=== PATIENT | female | born 1985 | race American Indian/Alaskan Native ===

== ENCOUNTER 2017-07-02 21:07 | Emergency (ER) | payer SELFPAY ==
[2017-07-02] MEDS ORDERED: CATAPRES PO ONE (22:16)
--- NOTE | 2017-07-02 22:20 | Emergency Department Report ---
ED ENT HPI - General Chief complaint: Nosebleed Stated complaint: NOSE BLEED Time Seen by Provider: 07/02/17 22:16 Source: patient Mode of arrival: Ambulatory Limitations: No Limitations, Language Barrier - History of Present Illness Initial comments: Patient reports nose bleed that started fifteen minutes prior to ED arrival. The triage nurse applied pressure with a dressing and the bleeding has subsided. The patient's blood pressure was elevated. She has been noncompliant with antihypertensive medication for two years. She is requesting a prescription to help control blood pressure MD complaint: epistaxis Onset/Timin -: hour(s) Time: 20:45 Location: nose Severity scale (0 -10): 0 Quality: constant Consistency: constant Improves with: pressure Worsens with: none Context-Epistaxis: other (none) Context- Dental: other (none) Context- Ear: other (none) Associated Symptoms: denies: fever, cough, gum swelling, toothache, pain with swallowing, sore throat, tinnitus, hearing loss, discharge from ear, rhinorrhea - Related Data Previous Rx's Medication Instructions Recorded Last Taken Type amLODIPine [Norvasc] 10 mg PO DAILY #30 tab 07/02/17 Unknown Rx ED Dental HPI - General Chief complaint: Nosebleed Stated complaint: NOSE BLEED Source: patient Mode of arrival: Ambulatory Limitations: No Limitations, Language Barrier - Related Data Previous Rx's Medication Instructions Recorded Last Taken Type amLODIPine [Norvasc] 10 mg PO DAILY #30 tab 07/02/17 Unknown Rx ED Review of Systems ROS: Stated complaint: NOSE BLEED Other details as noted in HPI Constitutional: denies: chills, diaphoresis, fever, malaise, weakness Eyes: denies: eye pain, eye discharge ENT: epistaxis. denies: ear pain, throat pain, dental pain, hearing loss, congestion Respiratory: denies: cough, orthopnea, shortness of breath, SOB with exertion, SOB at rest, stridor Cardiovascular: denies: chest pain, palpitations, dyspnea on exertion, orthopnea Neurological: headache. denies: numbness, paresthesias, confusion Hematological/Lymphatic: denies: easy bleeding, easy bruising, swollen glands ED Past Medical Hx - Past Medical History Previous Medical History?: Yes Hx Hypertension: Yes - Surgical History Past Surgical History?: No - Social History Smoking Status: Never Smoker Substance Use Type: None - Medications Home Medications: Home Medications Medication Instructions Recorded Confirmed Last Taken Type amLODIPine [Norvasc] 10 mg PO DAILY #30 tab 07/02/17 Unknown Rx ED Physical Exam - General Limitations: No Limitations, Language Barrier General appearance: alert, in no apparent distress, obese - Head Head exam: Present: atraumatic, normocephalic, normal inspection - Eye Eye exam: Present: normal appearance, PERRL, EOMI. Absent: scleral icterus, conjunctival injection, nystagmus Pupils: Present: normal accommodation, irregular - ENT ENT exam: Present: normal orophraynx, mucous membranes moist, TM's normal bilaterally, normal external ear exam, other (dried blood noted in nasal passages. No active bleeding at this time). Absent: mucous membranes dry - Neck Neck exam: Present: normal inspection, full ROM. Absent: tenderness, meningismus, lymphadenopathy, thyromegaly - Respiratory Respiratory exam: Present: normal lung sounds bilaterally. Absent: respiratory distress, wheezes, rales, rhonchi, stridor, chest wall tenderness, accessory muscle use, decreased breath sounds, prolonged expiratory - Cardiovascular Cardiovascular Exam: Present: normal heart sounds. Absent: systolic murmur, diastolic murmur, rubs, gallop - Neurological Exam Neurological exam: Present: alert, oriented X3, CN II-XII intact, normal gait, reflexes normal. Absent: motor sensory deficit ED Course Vital Signs 07/02/17 07/02/17 07/02/17 21:25 21:42 22:48 Temperature 99.8 F H 99.8 F H Pulse Rate 108 H 108 H 108 H Respiratory 22 17 Rate Blood Pressure 145/100 145/100 Blood Pressure 195/124 [Right] O2 Sat by Pulse 100 99 Oximetry - Reevaluation(s) Reevaluation #1: 07/02/17 22:52 antihypertensive medication ordered ED Medical Decision Making - Medical Decision Making During the course of ED, antihypertensive medication were ordered. Patient was sent home with a prescription for Norvasc, instructed to follow up with the selective referral given at discharge, she verbalized understanding - Differential Diagnosis HTN, Epistaxis Critical care attestation.: If time is entered above; I have spent that time in minutes in the direct care of this critically ill patient, excluding procedure time. ED Disposition Clinical Impression: Epistaxis Hypertension Qualifiers: Hypertension type: essential hypertension Qualified Code(s): I10 - Essential ( primary) hypertension Disposition: DC-01 TO HOME OR SELFCARE Is pt being admited?: No Does the pt Need Aspirin: No Condition: Stable Instructions: Hypertension (ED), Epistaxis (ED) Additional Instructions: Take medication as directed. Follow up with your PCP Prescriptions: amLODIPine [Norvasc] 10 mg PO DAILY #30 tab Referrals: PRIMARY CARE, [Primary Care Provider] - 3-5 Days [facility] [Outside] - 3-5 Days [facility] [Outside] - 3-5 Days [facility] [Outside] - 3-5 Days
[2017-07-03 01:35] VITALS: BP 142/95
== END 2017-07-03 03:34 | disposition home or self-care (01) ==
LOC: ED 21:07
DX: R04.0 Epistaxis (principal); I10 Essential (primary) hypertension
CPT/HCPCS: 99282